=== PATIENT | female | born 1990 | race Caucasian/White ===

== ENCOUNTER 2024-06-12 19:17 | Inpatient (IN) | payer MEDICAID, SELFPAY ==
[~2024-06-12] VITALS: Ht 170.2 cm; Wt 86.4 kg
[2024-06-12 20:29] LABS: MEAN CORPUSCULAR HEMOGLOBIN 29.5 pg (27.0-33.0); MEAN CORPUSCULAR HGB CONC 34.9 g/dl (32.0-36.5); MEAN CORPUSCULAR VOLUME 84.5 fl (80.0-96.0); PLATELET COUNT, AUTOMATED 293 10^3/uL (150-450); RED BLOOD COUNT 5.09 10^6/uL (4.00-5.40)
[2024-06-12 21:37] LABS: THYROID STIMULATING HORMONE 1.423 uIU/ML (0.55-4.78)
[2024-06-12 21:40] LABS: ALBUMIN 4.6 G/DL (3.2-5.2); ALKALINE PHOSPHATASE 48 U/L (35-104); ALT/SGPT 28 U/L (7.0-40); AST/SGOT 32 U/L (<34); BILIRUBIN,DIRECT 0.3 MG/DL (<0.4); BILIRUBIN,TOTAL 0.7 MG/DL (0.3-1.2); BLOOD UREA NITROGEN 7 MG/DL (9-23); CALCIUM LEVEL 9.8 MG/DL (8.5-10.1); CARBON DIOXIDE LEVEL 22 MMOL/L (20-31); CHLORIDE LEVEL 108 MMOL/L (98-107); CREATININE FOR GFR 0.74 MG/DL (0.55-1.30); ETHYL ALCOHOL (ETHANOL) 0.004 % (0.000-0.010); GLOMERULAR FILTRATION RATE > 60.0 (>60); GLUCOSE, FASTING 94 MG/DL (60-100); POTASSIUM SERUM 3.4 MMOL/L (3.5-5.1); SALICYLATE LEVEL < 3.0 MG/DL (<30); SODIUM LEVEL 141 MMOL/L (136-145); TOTAL PROTEIN 7.4 G/DL (5.7-8.2)
[2024-06-12 22:48] LABS: HCG, SERUM QUALITATIVE NEGATIVE (NEGATIVE)
[2024-06-12 23:28] LABS: AMPHETAMINES LEVEL URINE NEGATIVE (NEGATIVE); BARBITURATES URINE NEGATIVE (NEGATIVE); BENZODIAZEPINES URINE NEGATIVE (NEGATIVE); CANNABINOIDS URINE POSITIVE (NEGATIVE); COCAINE METABOLITE URINE NEGATIVE (NEGATIVE); METHADONE URINE NEGATIVE (NEGATIVE); OPIATES URINE NEGATIVE (NEGATIVE); PHENCYCLIDINE URINE NEGATIVE (NEGATIVE)
[2024-06-13] MEDS ORDERED: IBUPROFEN 400MG TAB PO PRN
[2024-06-13] MEDS ORDERED: MAALOX 30 ML SUSP *UDC PO PRN
[2024-06-13] MEDS ORDERED: MOM 30ML SUSPENSION UDC PO PRN
[2024-06-13] MEDS ORDERED: ACETAMINOPHEN 325 MG TAB PO PRN
[2024-06-13] MEDS ORDERED: PROMETHAZINE 25 MG TAB PO ONE (00:40)
[2024-06-13 01:00] VITALS: BP 148/98; TEMP 97.6; O2SAT 100
[2024-06-13] MEDS ORDERED: DICY20TA20 PO (01:06)
[2024-06-13] MEDS ORDERED: POTA-151 PO (01:06)
[2024-06-13] MEDS ORDERED: PROM25TA12 PO (01:06)
[2024-06-13] MEDS ORDERED: FAMO1TAB11 PO (01:06)
[2024-06-13] MEDS ORDERED: HOME MED LIST COMPLETE! XX SCH (01:10)
[2024-06-13] MEDS: PROMETHAZINE 25 MG TAB PO SCH ×2 (03:10→13:45)
[2024-06-13 17:57] VITALS: BP 142/89; TEMP 98.5
[2024-06-13] MEDS ORDERED: ISOVUE-370 76% 100ML VIAL As Ordered ONE (20:23)
[2024-06-13] MEDS: diphenhydrAMINE 25MG CAP PO PRN (20:38)
[2024-06-13] MEDS: traZODone 50 MG TAB PO PRN (20:38)
[2024-06-13] MEDS: HALOPERIDOL LACTATE 5MG/ML VIAL IM PRN (20:39)
[2024-06-13 22:08] LABS: BASO % 0.4 % (0.0-1.0); EOS % 0.1 % (0.0-3.0); HEMATOCRIT 40.7 % (36.0-47.0); HEMOGLOBIN 14.5 g/dl (12.0-15.5); LYMPH # 0.8 10^3/uL (1.5-5.0); LYMPH % 11.2 % (24.0-44.0); MEAN CORPUSCULAR HEMOGLOBIN 29.6 pg (27.0-33.0); MEAN CORPUSCULAR HGB CONC 35.6 g/dl (32.0-36.5); MEAN CORPUSCULAR VOLUME 83.1 fl (80.0-96.0); MONO # 0.6 10^3/uL (0.0-0.8); MONO % 8.6 % (2.0-8.0); NEUTROPHILS # 5.9 10^3/uL (1.5-8.5); NEUTROPHILS % 79.3 % (36.0-66.0); PLATELET COUNT, AUTOMATED 259 10^3/uL (150-450); WHITE BLOOD COUNT 7.4 10^3/uL (4.0-10.0)
[2024-06-13 22:49] LABS: PROCALCITONIN <0.04 ng/ml
[2024-06-13 22:51] LABS: ALBUMIN 4.2 G/DL (3.2-5.2); ALKALINE PHOSPHATASE 45 U/L (35-104); ALT/SGPT 25 U/L (7.0-40); AST/SGOT 20 U/L (<34); BILIRUBIN,DIRECT 0.5 MG/DL (<0.4); BILIRUBIN,TOTAL 1.2 MG/DL (0.3-1.2); BLOOD UREA NITROGEN 8 MG/DL (9-23); CALCIUM LEVEL 9.5 MG/DL (8.5-10.1); CARBON DIOXIDE LEVEL 29 MMOL/L (20-31); CHLORIDE LEVEL 103 MMOL/L (98-107); CREATININE FOR GFR 0.67 MG/DL (0.55-1.30); GLOMERULAR FILTRATION RATE > 60.0 (>60); GLUCOSE, FASTING 103 MG/DL (60-100); POTASSIUM SERUM 3.3 MMOL/L (3.5-5.1); SODIUM LEVEL 139 MMOL/L (136-145)
[2024-06-14 06:46] VITALS: BP 138/92; TEMP 98.5; O2SAT 100
[2024-06-14] MEDS: POTASSIUM CHLORIDE 10MEQ SR TABLET PO SCH (08:56)
== END 2024-06-14 11:25 | disposition home or self-care (01) | DRG 753 ==
LOC: M ED 19:17 → M ED INP 23:57 → M PSY 06-13 00:45
PROVIDERS: ADMIT Psychiatry & Neurology Psychiatry; ATTEND Psychiatry & Neurology Psychiatry
DX: F31.9 Bipolar disorder, unspecified (principal); R45.851 Suicidal ideations; R03.0 Elevated blood-pressure reading, without diagnosis of hypertension; R11.2 Nausea with vomiting, unspecified; J44.9 Chronic obstructive pulmonary disease, unspecified; Z81.1 Family history of alcohol abuse and dependence; Z81.8 Family history of other mental and behavioral disorders; Z87.891 Personal history of nicotine dependence; Z79.899 Other long term (current) drug therapy